=== PATIENT | male | born 1950 | race Caucasian/White ===

== ENCOUNTER → 2021-09-12 09:47 | Outpatient (BNVA) | payer OTHER, SELFPAY | PROVIDERS: Referring Provider Family Medicine; Visit Provider Orthopaedic Surgery | DX: M47.22 Other spondylosis with radiculopathy, cervical region (principal) | CPT/HCPCS: 72050; 99204 ==

== ENCOUNTER 2021-10-23 14:28 | Outpatient (CLI) | payer OTHER, SELFPAY ==
--- NOTE | 2021-10-23 15:15 | MR_ITS ---
WS: [id number] MRI CERVICAL SPINE NONCONTRAST TECHNIQUE: Sagittal T1, T2 and STIR imaging. Axial T2, gradient, and fiesta imaging. CLINICAL INFORMATION: neck pain COMPARISON: None. FINDINGS: Straightening of the normal cervical lordosis. Cord signal is normal. Slight anterolisthesis C5 on C6 . Disc bulging worse at C6-C7. C2-C3: Normal. C3-C4: Mild disc osteophytic ridging. Moderate LEFT bony foraminal narrowing. RIGHT foramen is patent . Mild facet arthropathy. Tiny shallow central protrusion. Spinal canal is patent. C4-C5: Mild disc bulging and osteophytic ridging. Mild facet arthropathy. Mild to moderate LEFT and m ild RIGHT bony foraminal narrowing. Spinal canal is patent. C5-C6: Slight anterolisthesis C5 on C6. Moderate facet arthropathy. Moderate LEFT and mild RIGHT bony foraminal narrowing. Spinal canal is patent. C6-C7: Shallow central disc osteophyte protrusion. Mild central canal stenosis. Moderate LEFT and mil d RIGHT bony foraminal narrowing. Mild facet arthropathy. C7-T1: LEFT eccentric disc osteophytic ridging. Moderate to severe LEFT and mild RIGHT bony foraminal narrowing. Spinal canal is patent. Incidental posterior fossa retrocerebellar arachnoid cyst. MR/MR cervical spin wo con* [id number] IMPRESSION: 1. Straightening of the normal cervical lordosis. Slight anterolisthesis C5 on C6. Cord signal is normal. 2. Small central/RIGHT pericentral disc osteophyte protrusion C6-C7 with mild central canal stenosis. 3. Moderate to severe LEFT C7-T1 bony foraminal narrowing. Correlation for LEF T C8 nerve root symptoms. 4. Moderate bony foraminal narrowing LEFT C3-C4, LEFT C5-C6, and LEFT C6-C7. 5. Mild/moderate LEFT C4-C5 bony foraminal narrowing.
== END 2021-10-23 14:29 | disposition home or self-care (01) ==
LOC: RAD 14:31
PROVIDERS: PCP Family Medicine; Visit Provider Orthopaedic Surgery
DX: M54.2 Cervicalgia (principal); M48.03 Spinal stenosis, cervicothoracic region
CPT/HCPCS: 72141

== ENCOUNTER → 2022-02-17 10:41 | Outpatient (BNVA) | payer OTHER, SELFPAY | PROVIDERS: PCP Family Medicine; Referring Provider Orthopaedic Surgery; Visit Provider Specialist | DX: G56.12 Other lesions of median nerve, left upper limb (principal) | CPT/HCPCS: 95908; 95909 ==

== ENCOUNTER → 2022-03-04 14:46 | Outpatient (BNVA) | payer OTHER, SELFPAY | PROVIDERS: PCP Family Medicine; Visit Provider Orthopaedic Surgery | DX: M25.512 Pain in left shoulder (principal); M47.22 Other spondylosis with radiculopathy, cervical region; M19.012 Primary osteoarthritis, left shoulder | CPT/HCPCS: 73030; 99214 ==

== ENCOUNTER 2024-03-21 15:55 | Emergency (ER) | payer OTHER, SELFPAY ==
[2024-03-21 16:01] VITALS: BP 153/84; PULSE 70; RESP 16; TEMP 36.8; O2SAT 97; BMI 29.5
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
[2024-03-21 17:30] VITALS: BP 150/90; PULSE 66; O2SAT 99
[2024-03-21 17:57] VITALS: BP 152/97; PULSE 65; RESP 16; O2SAT 97
== END 2024-03-21 17:58 | disposition home or self-care (01) ==
PROVIDERS: Emergency Provider Emergency Medicine; PCP Family Medicine
DX: S02.2XXA Fracture of nasal bones, initial encounter for closed fracture (principal); W20.8XXA Other cause of strike by thrown, projected or falling object, initial encounter
CPT/HCPCS: 70450; 70486; 99284